=== PATIENT | female | born 1935 | race Caucasian/White ===

== ENCOUNTER 2016-11-13 19:21 | Inpatient (IN) | payer OTHER ==
--- NOTE | ~2016-11-13 | CN ---
Consultation Report [facility] [address] [place]. [address] NAME: SEBASTIAN BAILON : 37 STATUS : ADM IN PAT#: [id number] AGE: 81 ADM/REG DATE : 11/13/16 MR#: [id number] REPORT SERV DATE: 11/14/16 DICTATED BY: SALAS STRINGER DATE: 11/14/16 REPORT STATUS : Draft TRANSCRIBED BY: MODL DATE: 11/14/16 INFECTIOUS DISEASE CONSULT DATE OF CONSULTATION: REASON FOR CONSULT: Left leg cellulitis. HISTORY OF PRESENT ILLNESS: An 81-year-old white lady with a history of hypertension, asthma, and some type of cardiac conduction abnormality who had a recent left total knee replacement on the 10/25/2016. At some point postoperatively, she developed erythema and maybe swelling on the lateral aspect of the knee level. To me, it is unclear if this is an evolution of the postoperative changes or there are new changes. It sounds from the patient that there was worsening of swelling and erythema. It sounds that at the surgery time, she also suffered a nerve injury, and she was asked to wear a brace because she had diminished flexion in the left foot. She went to see Dr. Barcenas's library technical assistant last week, and she was told she has an infection, so she was prescribed cefadroxil. She then had an appointment with Dr. Barcenas yesterday and she told him she did not like the color of her knee. She was admitted. No H and P, is available, so I do not know aspect of the knee yesterday and what exactly the plan was. There are no cultures available. LABORATORY WORK: Lab work showed a creatinine of 0.7. WBC 5 and hemoglobin 10. Chest x-ray without is any acute infiltrates. She reported no fever or chills. No vomiting. No diarrhea. No abdominal pain. No urinary symptoms. No other skin lesions. She has had a serous drainage from the small portion on the incision which she described as yellow drainage. She did not describe pus. She thinks the area of erythema and swelling may be better than last week. PAST MEDICAL HISTORY: As I mentioned plus history of parathyroid surgery for unclear reason, hysterectomy, cataract surgery, and history of blepharitis. SOCIAL HISTORY: She is a , currently lives with family postop. She has no pets. She quit smoking. ALLERGIES: NONE. MEDICATIONS ON ADMISSION: The cefadroxil started on the 11/09/2016, artificial Tears, diazepam at that time, [place] as needed, lisinopril with hydrochlorothiazide, and Coumadin. PHYSICAL EXAMINATION: GENERAL: Exam done in presence of her nurse. LUNGS: Clear to auscultation. HEART: Regular rhythm. ABDOMEN: Obese, soft. Consultation Report [address] [place] [facility] [place] [address] NAME: SEBASTIAN BAILON : 37 STATUS : ADM IN [facility]#: [id number] AGE: 81 ADM/REG DATE : 11/13/16 MR#: [id number] REPORT SERV DATE: 11/14/16 DICTATED BY: SALAS STRINGER DATE: 11/14/16 REPORT STATUS : Draft TRANSCRIBED BY: CARL DATE: 11/14/16 EXTREMITIES: Left knee with some mid surgical site area swelling and redness. Some mild swelling on the lateral aspect of the knee with a small part on the incision that has seemingly superficial dehiscence with serous drainage. After disinfecting this with alcohol, fluid was collected for culture. She has no pain with range of motion. She has some ecchymotic changes on a couple of the toes. She wears a brace. There is no wound over her foot. ASSESSMENT AND PLAN: Recent left total knee replacement on the 10/25/2016, erythema at the mid incision of lateral knee areas with small opening on the mid incision. This has serous drainage. Cultures were sent from this, although she is already on antibiotics. Also we will check blood cultures. Hopefully, this is just a superficial process. She has good knee range of motion without pain. She reports no fever. We will continue vancomycin empirically for the time being. I discussed with the patient and her nurse. BLESSING/CARL Salas Stringer M.D. / [id number] CC: Bar Callaway WILLIAM C
--- NOTE | ~2016-11-13 | DS ---
Discharge Summary [facility] [address] [facility] [place]. [address] NAME: SEBASTIAN BAILON : 37 STATUS : DIS IN PAT#: [id number] AGE: 81 ADM/REG DATE : 11/13/16 MR#: [id number] REPORT SERV DATE: 12/06/16 DICTATED BY: CARLYLE BARCENAS DATE: 12/05/16 REPORT STATUS : Draft TRANSCRIBED BY: MODL DATE: 12/05/16 ADMISSION DATE: 11/13/2016 DISCHARGE DATE: 11/17/2016 ADMISSION DIAGNOSIS: Left knee cellulitis, status post total knee arthroplasty. HOSPITAL COURSE: The patient was admitted with cellulitis postop refractory to outpatient management. She was admitted, treated with IV antibiotics. It continued to appear extraarticular. The erythema gradually improved as did her progression in physical therapy such that on 11/17/2016, she was discharged home. DISCHARGE DIET: General. MEDICATIONS: Unchanged from admission. See MAR plus antibiotic. DISCHARGE FOLLOWUP: In two weeks. ACTIVITY: Weightbearing as tolerated. WTB/MODL Shavonne Barcenas M.D. / [id number] CC: Bar Callaway
[~2016-11-13 19:21] MED LIST: ASAB PO; C5 PO; FLONASE NAS; MOBIC7.5 PO; NORCO1 TA2 PO; V2 PO; VIVELLE SY0.025 MG/2 TOP; ZESTORETIC PO
[2016-11-13] MEDS ORDERED: NORCO1 TA2 PO (21:57)
[2016-11-13] MEDS ORDERED: C5 PO (21:57)
[2016-11-13] MEDS ORDERED: DURICEF PO (22:01)
[2016-11-13] MEDS ORDERED: V2 PO (22:02)
[2016-11-13] MEDS ORDERED: ZESTORETIC PO (22:02)
[2016-11-13] MEDS ORDERED: BION TEARS OPH (22:02)
[2016-11-14 01:04] LABS: BASOPHILS 0.4 %; BASOPHILS ABSOLUTE 0.02 10/3/uL (0.0-0.16); EOSINOPHILS 1.9 %; EOSINOPHILS ABSOLUTE 0.11 10/3/uL (0.0-0.53); HEMATOCRIT 30.3 % (36.0-48.0); IMMATURE GRANULOCYTES 0.2 %; IMMATURE GRANULOCYTES ABSOLUTE 0.01 10/3/uL (0.0-0.11); LYMPHOCYTES 12.5 %; LYMPHOCYTES ABSOLUTE 0.71 10/3/uL (0.67-4.30); MEAN CORPUSCULAR HEMOGLOB 29.9 pg (26.0-34.0); MEAN CORPUSCULAR VOLUME 90.4 fL (80-100); MONOCYTES 13.7 %; MONOCYTES ABSOLUTE 0.78 10/3/uL (0.21-1.20); NEUTROPHILS 71.3 %; NEUTROPHILS ABSOLUTE 4.05 10/3/uL (2.02-8.40); PLATELET COUNT 288 10/3/uL (150-400); RBC DISTRIBUTION WIDTH 14.9 % (12.0-16.0); WHITE BLOOD CELLS 5.7 10/3/uL (4.5-10.5)
[2016-11-14 01:05] LABS: MANUAL DIFF NO %; RED CELL COUNT 3.35 10/6/uL (4.0-5.6)
[2016-11-14 01:12] LABS: INTERNATIONAL NORMAL RATI 2.3 UNITS (-); PROTIME (NOT ORD) 24.7 SEC (12.0-14.5)
[2016-11-14 01:20] LABS: A/G RATIO 0.8 (0.7-1.9); ALBUMIN 2.6 G/DL (3.5-5.0); ALKALINE PHOSPHATASE 99 U/L (45-117); BUN (BLOOD UREA NITROGEN) 14 MG/DL (6-23); CALCIUM, SERUM 7.7 MG/DL (8.5-10.4); CHLORIDE, SERUM 105 MMOL/L (96-112); CO2 (CARBON DIOXIDE) 27 MMOL/L (24-34); CREATININE 0.72 MG/DL (0.55-1.02); GFR AFRICAN AMERICAN 92 ML/MIN (>=60); GFR NON AFRICAN AMERICAN 79 ML/MIN (>=60); GLOBULIN 3.1 G/DL (2.5-4.1); GLUCOSE, SERUM 131 MG/DL (60-99); POTASSIUM, SERUM 3.6 MMOL/L (3.5-5.3); SGOT(AST) 15 U/L (5-40); SGPT(ALT) 28 U/L (5-65); SODIUM, SERUM 142 MMOL/L (135-148); TOTAL BILIRUBIN 0.3 MG/DL (0-1.2); TOTAL PROTEIN 5.7 G/DL (6.0-8.5)
[2016-11-15 05:39] LABS: BASOPHILS 0.4 %; BASOPHILS ABSOLUTE 0.02 10/3/uL (0.0-0.16); EOSINOPHILS 2.8 %; EOSINOPHILS ABSOLUTE 0.15 10/3/uL (0.0-0.53); HEMATOCRIT 31.9 % (36.0-48.0); HEMOGLOBIN 10.2 g/dL (12.0-16.0); IMMATURE GRANULOCYTES 0.2 %; IMMATURE GRANULOCYTES ABSOLUTE 0.01 10/3/uL (0.0-0.11); LYMPHOCYTES 12.5 %; LYMPHOCYTES ABSOLUTE 0.68 10/3/uL (0.67-4.30); MEAN CORPUSCULAR HEMOGLOB 28.9 pg (26.0-34.0); MEAN CORPUSCULAR VOLUME 90.4 fL (80-100); MEAN PLATELET VOLUME 9.1 fL (9.2-13.0); MONOCYTES 14.8 %; NEUTROPHILS 69.3 %; NEUTROPHILS ABSOLUTE 3.76 10/3/uL (2.02-8.40); PLATELET COUNT 287 10/3/uL (150-400); RBC DISTRIBUTION WIDTH 14.8 % (12.0-16.0); RED CELL COUNT 3.53 10/6/uL (4.0-5.6); WHITE BLOOD CELLS 5.4 10/3/uL (4.5-10.5)
[2016-11-15 05:42] LABS: MANUAL DIFF NO %
[2016-11-15 05:46] LABS: INTERNATIONAL NORMAL RATI 1.7 UNITS (-)
[2016-11-15 05:48] LABS: PROTIME (NOT ORD) 19.8 SEC (12.0-14.5)
[2016-11-15 05:51] LABS: BUN (BLOOD UREA NITROGEN) 12 MG/DL (6-23); CALCIUM, SERUM 8.3 MG/DL (8.5-10.4); CHLORIDE, SERUM 107 MMOL/L (96-112); CO2 (CARBON DIOXIDE) 25 MMOL/L (24-34); CREATININE 0.62 MG/DL (0.55-1.02); GFR AFRICAN AMERICAN 99 ML/MIN (>=60); GFR NON AFRICAN AMERICAN 85 ML/MIN (>=60); GLUCOSE, SERUM 109 MG/DL (60-99); POTASSIUM, SERUM 3.7 MMOL/L (3.5-5.3); SODIUM, SERUM 140 MMOL/L (135-148)
[2016-11-16 05:00] LABS: BASOPHILS 0.2 %; BASOPHILS ABSOLUTE 0.01 10/3/uL (0.0-0.16); EOSINOPHILS 3.1 %; EOSINOPHILS ABSOLUTE 0.17 10/3/uL (0.0-0.53); HEMATOCRIT 30.9 % (36.0-48.0); HEMOGLOBIN 9.7 g/dL (12.0-16.0); IMMATURE GRANULOCYTES 0.2 %; IMMATURE GRANULOCYTES ABSOLUTE 0.01 10/3/uL (0.0-0.11); LYMPHOCYTES 13.4 %; LYMPHOCYTES ABSOLUTE 0.74 10/3/uL (0.67-4.30); MEAN CORPUS HGB CONC 31.4 g/dL (32.0-36.0); MEAN CORPUSCULAR HEMOGLOB 28.6 pg (26.0-34.0); MEAN CORPUSCULAR VOLUME 91.2 fL (80-100); MEAN PLATELET VOLUME 9.4 fL (9.2-13.0); MONOCYTES 14.6 %; MONOCYTES ABSOLUTE 0.81 10/3/uL (0.21-1.20); NEUTROPHILS 68.5 %; NEUTROPHILS ABSOLUTE 3.79 10/3/uL (2.02-8.40); PLATELET COUNT 289 10/3/uL (150-400); RED CELL COUNT 3.39 10/6/uL (4.0-5.6); WHITE BLOOD CELLS 5.5 10/3/uL (4.5-10.5)
[2016-11-16 05:01] LABS: MANUAL DIFF NO %
[2016-11-16 05:05] LABS: INTERNATIONAL NORMAL RATI 1.6 UNITS (-); PROTIME (NOT ORD) 18.7 SEC (12.0-14.5)
[2016-11-16 05:08] LABS: BUN (BLOOD UREA NITROGEN) 12 MG/DL (6-23); CALCIUM, SERUM 7.6 MG/DL (8.5-10.4); CHLORIDE, SERUM 107 MMOL/L (96-112); CO2 (CARBON DIOXIDE) 27 MMOL/L (24-34); CREATININE 0.59 MG/DL (0.55-1.02); GFR AFRICAN AMERICAN 100 ML/MIN (>=60); GFR NON AFRICAN AMERICAN 87 ML/MIN (>=60); GLUCOSE, SERUM 99 MG/DL (60-99); POTASSIUM, SERUM 3.5 MMOL/L (3.5-5.3); SODIUM, SERUM 141 MMOL/L (135-148)
[2016-11-17 05:01] LABS: INTERNATIONAL NORMAL RATI 1.5 UNITS (-); PROTIME (NOT ORD) 18.2 SEC (12.0-14.5)
[2016-11-17 05:09] LABS: BUN (BLOOD UREA NITROGEN) 13 MG/DL (6-23); CALCIUM, SERUM 8.1 MG/DL (8.5-10.4); CHLORIDE, SERUM 106 MMOL/L (96-112); GFR AFRICAN AMERICAN 100 ML/MIN (>=60); GFR NON AFRICAN AMERICAN 86 ML/MIN (>=60); GLUCOSE, SERUM 104 MG/DL (60-99); POTASSIUM, SERUM 3.9 MMOL/L (3.5-5.3); SODIUM, SERUM 140 MMOL/L (135-148)
[2016-11-17 05:12] LABS: BASOPHILS 0.5 %; BASOPHILS ABSOLUTE 0.03 10/3/uL (0.0-0.16); EOSINOPHILS 2.7 %; EOSINOPHILS ABSOLUTE 0.15 10/3/uL (0.0-0.53); HEMATOCRIT 32.5 % (36.0-48.0); HEMOGLOBIN 10.5 g/dL (12.0-16.0); IMMATURE GRANULOCYTES 0.2 %; IMMATURE GRANULOCYTES ABSOLUTE 0.01 10/3/uL (0.0-0.11); LYMPHOCYTES 12.8 %; LYMPHOCYTES ABSOLUTE 0.71 10/3/uL (0.67-4.30); MEAN CORPUS HGB CONC 32.3 g/dL (32.0-36.0); MEAN CORPUSCULAR HEMOGLOB 29.2 pg (26.0-34.0); MEAN CORPUSCULAR VOLUME 90.5 fL (80-100); MEAN PLATELET VOLUME 9.5 fL (9.2-13.0); MONOCYTES 16.8 %; MONOCYTES ABSOLUTE 0.93 10/3/uL (0.21-1.20); PLATELET COUNT 287 10/3/uL (150-400); RED CELL COUNT 3.59 10/6/uL (4.0-5.6); WHITE BLOOD CELLS 5.5 10/3/uL (4.5-10.5)
[2016-11-17 05:17] LABS: CO2 (CARBON DIOXIDE) 22 MMOL/L (24-34)
[2016-11-17 05:28] LABS: MANUAL DIFF NO %
[2016-11-17] MEDS ORDERED: CIP5 PO (13:04)
[2016-11-17] MEDS ORDERED: DURICEF PO (13:04)
== END 2016-11-17 16:12 | disposition home or self-care (01) | DRG 863 ==
LOC: 3SO 19:21
PROVIDERS: Internal Medicine Infectious Disease; Specialist
DX: T81.4XXA Infection following a procedure, initial encounter (principal); L03.116 Cellulitis of left lower limb; I10 Essential (primary) hypertension; F32.9 Major depressive disorder, single episode, unspecified
CPT/HCPCS: 71010; 80048; 80053; 80202; 85025; 85610; 87040; 87070; 87077; 87186; 87205; 93005; 97116-GP; 97161-GP; 97165-GO; A9270-GY; J0690; J3370